=== PATIENT | female | born 1995 ===

== ENCOUNTER 2023-12-21 02:57 | Inpatient (IN) | payer OTHER ==
[2023-12-21] MEDS ORDERED: Nalbuphine 10 MG/1 ML Vial IVPUSH PRN (03:23)
[2023-12-21] MEDS ORDERED: Sodium Chloride 0.9% 10 ML Syringe FLUSH PRN (03:23)
[2023-12-21] MEDS ORDERED: Penicillin G Potassium 2.5 MILLUNITS in Sodium Chloride 0.9% 100 ML IV SCH (03:30)
[2023-12-21 03:32] LABS: BASOPHILS ABSOLUTE AUTO 0.1 K/mm3 (0.0-0.2); BASOPHILS PERCENT AUTO 0.7 % (0.0-1.0); EOSINOPHILS ABSOLUTE AUTO 0.1 K/mm3 (0.0-0.4); HEMATOCRIT 38.7 % (37.0-47.0); HEMOGLOBIN 13.1 gm/dl (12.0-16.0); IMMATURE GRAN ABSOLUTE AUTO 0.07 K/mm3 (0.00-0.05); LYMPHOCYTES ABSOLUTE AUTO 2.3 K/mm3 (1.0-4.8); LYMPHOCYTES PERCENT AUTO 33.4 % (24.0-44.0); MEAN CORPUSCULAR HEMOGLOBIN 30.5 pg (28.0-32.0); MEAN CORPUSCULAR HGB CONC 33.9 g/dl (32.0-36.0); MEAN PLATELET VOLUME 10.7 fl (9.4-12.3); MONOCYTES ABSOLUTE AUTO 0.7 K/mm3 (0.0-0.8); MONOCYTES PERCENT AUTO 9.6 % (0.0-8.0); NEUTROPHILS ABSOLUTE AUTO 3.7 K/mm3 (1.8-7.7); NEUTROPHILS PERCENT AUTO 53.3 % (41.0-71.0); PLATELET COUNT,PLT 185 K/mm3 (150-400); WHITE BLOOD CELL COUNT,WBC 6.95 K/mm3 (3.9-11.3)
[2023-12-21] MEDS: Oxytocin/0.9 % Sodium Chloride 30 UNIT/500 ML BAG IV SCH (03:53)
[2023-12-21] MEDS ORDERED: Acetaminophen 325 MG Tab PO PRN (05:06)
[2023-12-21] MEDS ORDERED: Penicillin G Potassium 5 MILLUNITS in Sodium Chloride 0.9% 100 ML IV ONE (05:15)
[2023-12-21] MEDS ORDERED: Lactated Ringers 1,000 ML IV SCH (05:15)
[2023-12-21] MEDS: Lidocaine 1% 50 ML MDV INJECT PRN (05:49)
[2023-12-21] MEDS: Witch Hazel Medicated Pads 40/Jar TOP PRN (05:50)
[2023-12-21] MEDS: Ibuprofen 600 MG Tab PO SCH (05:50)
[2023-12-21] MEDS: Benzocaine/Menthol 20%-0.5% Spray 78 GM Cannister TOP PRN (05:50)
[2023-12-21] MEDS: Prenatal Multivitamin with Calcium/Folic Acid/Iron Tab PO SCH (10:30)
[2023-12-21] MEDS: Sodium Chloride 0.9% 10 ML Syringe FLUSH SCH (10:38)
[2023-12-21] MEDS: Docusate Sodium 100 MG Cap PO PRN (21:27)
== END 2023-12-23 15:20 | disposition home or self-care (01) | DRG 806 ==
LOC: JD.OBCHECK 02:57 → JD.OB 03:00 → JD.OBCHECK 03:23 → JD.OB 03:23 → OBSVTOIN 03:54 → JD.OB 11:43
PROVIDERS: ADMIT Obstetrics & Gynecology; ATTEND Family Medicine
PROC: 10E0XZZ Delivery of Products of Conception, External Approach (ICD-10-PCS; principal; 2023-12-21)
DX: O99.02 Anemia complicating childbirth (principal); N39.0 Urinary tract infection, site not specified; Z37.0 Single live birth; O23.43 Unspecified infection of urinary tract in pregnancy, third trimester; O99.824 Streptococcus B carrier state complicating childbirth; Z3A.38 38 weeks gestation of pregnancy; D64.9 Anemia, unspecified
CPT/HCPCS: 36415; 59025; 59409; 85025; 86592; A9270-GY; J2001; J7999

== ENCOUNTER 2025-04-06 14:08 | Emergency (ER) | payer SELFPAY | END 2025-04-06 14:28 | disposition left against medical advice (07) | LOC: JD.ED 14:08 | DX: Z53.21 Procedure and treatment not carried out due to patient leaving prior to being seen by health care provider (principal) ==

== ENCOUNTER 2025-04-06 18:40 | Emergency (ER) | payer SELFPAY ==
[2025-04-06 20:14] LABS: BASOPHILS ABSOLUTE AUTO 0.1 K/mm3 (0.0-0.2); BASOPHILS PERCENT AUTO 0.7 % (0.0-1.0); EOSINOPHILS ABSOLUTE AUTO 0.2 K/mm3 (0.0-0.4); EOSINOPHILS PERCENT AUTO 2.7 % (0.0-6.0); IMMATURE GRAN ABSOLUTE AUTO 0.02 K/mm3 (0.00-0.05); IMMATURE GRAN PERCENT AUTO 0.2 % (0.0-0.4); LYMPHOCYTES ABSOLUTE AUTO 2.1 K/mm3 (1.0-4.8); LYMPHOCYTES PERCENT AUTO 26.7 % (24.0-44.0); MEAN PLATELET VOLUME 9.8 fl (9.4-12.3); MONOCYTES ABSOLUTE AUTO 0.8 K/mm3 (0.0-0.8); MONOCYTES PERCENT AUTO 10.3 % (0.0-8.0); NEUTROPHILS ABSOLUTE AUTO 4.8 K/mm3 (1.8-7.7); NEUTROPHILS PERCENT AUTO 59.4 % (41.0-71.0); NRBC ABSOLUTE 0.00 (0.00-0.02); NRBC PERCENT 0.0 % (0.0-0.2); PLATELET COUNT,PLT 261 K/mm3 (150-400); RED BLOOD CELL COUNT 4.07 M/mm3 (4.10-5.30); WHITE BLOOD CELL COUNT,WBC 8.02 K/mm3 (3.9-11.3)
[2025-04-06 20:41] LABS: APPEARANCE,URINE CLEAR (Clear); GLUCOSE,URINE NEGATIVE (Negative); OCCULT BLOOD,URINE NEGATIVE (Negative)
[2025-04-06 20:49] LABS: A/G RATIO 0.9 (1-2); ALANINE AMINOTRANSFERASE,ALT 27.0 U/L (14-59); ASPARTATE AMNIOTRANSFERASE,AST 14.0 U/L (15-37); BILIRUBIN TOTAL 0.3 mg/dL (0.2-1.0); BLOOD UREA NITROGEN,BUN 14.0 mg/dL (7-18); CARBON DIOXIDE,CO2 26.0 mEq/L (21-32); CHLORIDE,CL 107.0 mEq/L (98-107); CREATININE 0.6 mg/dL (0.55-1.02); EST CRCL DRUG DOSING (CG) 103.46 mL/min; ESTIMATED GFR 124.0 mL/min (>60); GLUCOSE RANDOM 90.0 mg/dL (70-99); POTASSIUM,K 3.9 mEq/L (3.5-5.1); PROTEIN TOTAL,TP 7.0 g/dl (6.4-8.2); SODIUM,NA 142.0 mEq/L (136-145)
[2025-04-06 23:12] LABS: C. TRACHOMATIS BY PCR NOT DETECTED; N. GONORRHOEAE BY PCR NOT DETECTED
== END 2025-04-06 23:44 | disposition home or self-care (01) ==
LOC: JD.ED 18:40 → MERGE 18:40 → JD.ED 23:44
DX: O99.891 Other specified diseases and conditions complicating pregnancy (principal); R10.22 Pelvic and perineal pain left side; Z79.899 Other long term (current) drug therapy; Z3A.08 8 weeks gestation of pregnancy
CPT/HCPCS: 36415; 76817; 76817-26; 80053; 81003; 81025; 81515; 84702; 85025; 87491; 87591; 99283; 99284